=== PATIENT | female | born 2000 | race African-American/Black ===

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

== ENCOUNTER 2022-09-20 01:34 | Emergency (ER) | payer BC ==
[~2022-09-20] VITALS: Ht 167.6 cm; Wt 95.3 kg
[2022-09-20 01:42] VITALS: O2SAT 99
[2022-09-20] MEDS ORDERED: AMOXICILLIN500 MG PO (01:52)
== END 2022-09-20 02:15 | disposition home or self-care (01) ==
LOC: FSED 01:42
DX: R05.9 Cough, unspecified (principal); J02.0 Streptococcal pharyngitis
CPT/HCPCS: 83518; 99283